=== PATIENT | male | born 1995 | race Caucasian/White ===

== ENCOUNTER 2020-12-27 10:27 | Emergency (ER) | payer BC ==
[~2020-12-27] VITALS: Ht 185.4 cm; Wt 79.5 kg
[2020-12-27 10:37] VITALS: TEMP 98.8
[2020-12-27 12:34] VITALS: BP 135/88; PULSE 92
== END 2020-12-27 12:37 | disposition home or self-care (01) ==
LOC: COL.ER 10:27
DX: J36 Peritonsillar abscess (principal)
CPT/HCPCS: J1100; J2270; J7120

== ENCOUNTER → 2024-02-24 | Day surgery (SDC) | payer BC ==
[~2024-02-24] VITALS: Ht 188 cm; Wt 80.0 kg
[~2024-02-24] MED LIST: LR 1,000 ML IV SCH; Ondansetron 4 MG/2 ML VIAL IV PRN; PROTONIX 40MG T40 MG PO
[2024-02-24 09:32] VITALS: BP 128/79; PULSE 71; TEMP 97.2
[2024-02-24 16:47] VITALS: BP 108/56; PULSE 63
== END ==
LOC: SDCO 08:48
DX: K21.00 Gastro-esophageal reflux disease with esophagitis, without bleeding (principal); K29.50 Unspecified chronic gastritis without bleeding; F17.290 Nicotine dependence, other tobacco product, uncomplicated
CPT/HCPCS: J2704; J7120